=== PATIENT | female | born 1980 | race Caucasian/White ===

== ENCOUNTER 2023-12-05 16:44 | Emergency (ER) | payer OTHER, SELFPAY ==
[2023-12-05 16:53] VITALS: BP 170/110; PULSE 96; RESP 18; TEMP 36.7; O2SAT 98; BMI 28.4
--- NOTE | 2023-12-05 16:54 | ED_ITS ---
HPI - Wound/Laceration General Chief Complaint: Wound/Laceration Stated Complaint: left hand pointer finger cut Time Seen by Provider: 12/05/23 18:16 Source: patient Mode of arrival: ambulatory Limitations: no limitations History of Present Illness ED Provider: Molly Allen APRN HPI narrative: 43 yo female with history of crohns, htn, RA, ADHD right hand dominant here with lac to left index finger from hedge clippers. Tetanus is not up to date. No weakness, numbness, tingling. Related Data Previous Rx's ?Medication ?Instructions ?Recorded cephalexin 500 mg capsule 500 mg PO BID #14 caps 12/05/23 Allergies Allergy/AdvReac Type Severity Reaction Status Date / Time No Known Allergies Allergy Verified 12/05/23 16:56 Review of Systems Review of Systems: Yes all other systems are reviewed and are negative Constitutional: Constitutional: Reports no additional constitutional complaints, Denies body ache(s), Denies chills, Denies fever(s), Denies headach e(s) and Denies weakness Eyes: Eyes: Reports no additional eye complaints and Denies change in vision ENT: Reports system reviewed and no additional complaints, except as documented, Denies dizziness, Denies headache(s), Denies nasal congestion, Denies nasal discharge and Denies neck pain Cardiovascular: Cardiovascular: Reports no additional cardiovascular complaints, Denies chest pain, Denies leg edema and Denies dyspnea Respiratory: Respiratory: Reports no additional respiratory complaints, Denies cough and Denies dyspnea Gastrointestinal: Gastrointestinal: Reports no additional gastrointestinal complaints, Denies abdominal pain, Denies diarrhea, Denies nausea and Denies vomiting Genitourinary: Genitourinary: Reports no additional female genitourinary complaints and Denies urinary incontinence Musculoskeletal: Musculoskeletal: Reports no additional musculoskeletal complaints, Denies back pain, Denies arthralgias, Denies joint swelling, Denies neck pain, Denies numbness and Denies tingling Integumentary/Breasts: Skin/Breast: Reports system reviewed and no additional complaints, except as docu, Denies rash and Reports wounds Neurologic: Reports system reviewed and no additional complaints, except as documented, Denies Abnormal speech present, Denies dizziness, Denies headache(s), Denies numbness, Denies tingling and Denies weakness FORMERLY [facility], 1928–1983 Past Medical History Attestation statement: The following information was validated with the patient. Source: old records reviewed and nursing notes reviewed Social History Social History Advance Directives: No Advance Directives Information Provided: Yes Do you have a plan to hurt others: No Plan Physical Exam Vital Signs: Vital Signs: Last Vital Signs Temp 97.8 F 12/05/23 19:03 Pulse 75 12/05/23 19:03 Resp 16 12/05/23 19:03 BP 171/98 H 12/05/23 19:03 Pulse Ox 100 12/05/23 19:03 O2 Del Method Room Air 12/05/23 19:03 BMI result Body Mass Index 28.4 Const: General: cooperative, healthy appearing, comfortable and no acute distress Orientation/consciousness: patient oriented x3 Limitations: no limitations HEENT: Head: Yes normal to inspection Ears: hearing grossly normal bilaterally General nose exam: Normal external nose present Face and sinus: Yes normal facial exam Mouth: Normal oral and palatal mucosa present Throat: Yes posterior oropharynx normal Eyes: General: appearance normal, both eyes and all related structures Pupils: Equal, round and reactive pupils present Neck: Neck: Yes normal visual inspection Chest: Chest palpation & inspection: normal inspection of the chest Resp: Effort & Inspection: normal respiratory effort Auscultation: clear to auscultation bilaterally Cardio: Rate: regular rate Rhythm: regular rhythm Peripheral pulses: Peripheral pulses 2+ throughout GI: Inspection: Yes normal to inspection Palpation (GI): Soft to palpation and nontender Auscultation: normal bowel sounds Back/Spine/Pelvis: Thoracic/Lumbar Spine: thoracic and lumbar spine normal to inspection Skin: General skin exam: no rashes or lesions noted Neuro: General: patient oriented x3, no focal motor deficits and normal sensation to monofilament Cranial nerves: Yes Equal, round and reactive pupils present Cognition (Neuro): normal cognition Speech: No Abnormal speech present Gait exam (Neuro): Normal gait present Motor exam (neuro): 5/5 motor strength present throughout Extrem: Other: over the volar distal aspect of the left index finger there is a lac present (1.5cm), slight bleeding noted. FROM. Normal sensation. General: Yes normal to inspection Course Course Course Narrative: This is a rapid medical exam. Deferred additional HPI, ROS, PE to primary provider. 43 yo female with history of crohns, htn, RA, ADHD right hand dominant here with lac to left index finger from hedge clippers. will need lac repair with sutures, tetanus updated CYNDI Allen APRN Medications Administered Discontinued Medications Generic Name Dose Route Start Last Admin Trade Name Andreina PRN Reason Stop Dose Admin Cephalexin HCl 500 mg 12/05/23 18:46 12/05/23 18:53 Cephalexin 500 Mg Capsule PO 12/05/23 18:47 500 mg ONCE ONE Administration Diphtheria/Tetanus/Acell Pertussis 0.5 ml 12/05/23 16:58 12/05/23 18:16 Diphth,Pertus(Acell),Tet Adult 0.5 Ml Syringe IM 12/05/23 16:59 0.5 ml .ONCE ONE Administration Lidocaine HCl 2 ml 12/05/23 18:17 12/05/23 18:21 Lidocaine Hcl 1 % Mpf 2 Ml Vial INFILTRATI 12/05/23 18:18 2 ml ONCE ONE Administration Lidocaine HCl 2 ml 12/05/23 18:17 12/05/23 18:23 Lidocaine Hcl 1 % Mpf 2 Ml Vial INFILTRATI 12/05/23 18:18 2 ml ONCE ONE Administration Medical Decision Making Medical Decision Making MDM Narrative: 43 yo female with history of crohns, htn, RA, ADHD right hand dominant here with lac to left index finger from hedge clippers. Tetanus is not up to date. No weakness, numbness, tingling. over the volar distal aspect of the left index finger there is a lac present (1.5cm), slight bleeding noted. FROM. Normal sensation. See wound repair, tetanus will be given, pptx antibiotics Differential Diagnosis Differential Diagnoses: The differential diagnosis associated with the presentation includes Laceration, low suspicion for tendon laceration, foreign body, bony abnormality, vascular injury Admission/Observation Consideration of admission/observation: Escalation of care including admis harsha/observation considered low suspicion for tendon laceration, foreign body, bony abnormality, vascular injury requiring advanced imaging, urgent orthopedic consultation Tests considered The following testing was considered but not selected: low suspicion for tendon laceration, foreign body, bony abnormality, vascular injury requiring advanced imaging Prescription Management I considered prescription management with: Antibiotic Procedures Laceration Laceration 1: Site: hand (2nd digit ) Side (If applicable): left Size (cm): 3 Description: linear Depth: simple, single layer Pre-repair: wound explored and irrigated extensively (2L NS) Skin layer closed with: vicryl Size (cm): 5-0 Number of sutures: 3 Technique: simple, interrupted Nerve Block Nerve Block 1: Local Anesthetic: lidocaine 1% Amount of anesthesia used (mL): 3 Side: left Nerve Blocks: digital Procedure Successful: Yes Patient Tolerated Procedure: well Complications: none Discharge Plan Discharge Clinical Impression: Laceration Patient Disposition: Home, Self-Care Instructions: Finger Laceration (ED) Additional Instructions: Sutures may be removed in 7-10 days Keep the wound covered for 24 hrs then you may remove it and leave it open to air Water may run over it. NO soaking in water Motrin or tylenol for pain if able as needed Return for signs of infection (redness, drainage, fever) Prescriptions: New cephalexin 500 mg capsule 500 mg PO BID Qty: 14 0RF Referrals: Delmar Chandra MD [Primary Care Provider] - 1 week Interventions: ED Discharge Assessment Last Done: 12/05/23 19:03 Discharge Date/Time: 12/05/23 19:04 Print Language: Somali
[2023-12-05] MEDS: Diphth,Pertus(ACell),Tet Adult 0.5 ML SYRINGE IM (18:16)
[2023-12-05 18:17] VITALS: BP 171/98; PULSE 75; RESP 16; TEMP 36.6; O2SAT 100
[2023-12-05] MEDS: Lidocaine HCl 1 % MPF 2 ML VIAL INFILTRATI ×2 (18:21→18:23)
[2023-12-05] MEDS: cephALEXin 500 MG CAPSULE PO (18:53)
[2023-12-05 19:03] VITALS: BP 171/98; PULSE 75; RESP 16; TEMP 36.6; O2SAT 100
== END 2023-12-05 19:04 | disposition home or self-care (01) ==
PROVIDERS: Emergency Provider Emergency Medicine; PCP Internal Medicine
DX: S61.211A Laceration without foreign body of left index finger without damage to nail, initial encounter (principal); M79.642 Pain in left hand; W29.3XXA Contact with powered garden and outdoor hand tools and machinery, initial encounter; Y93.9 Activity, unspecified; Y92.007 Garden or yard of unspecified non-institutional (private) residence as the place of occurrence of the external cause; Y99.8 Other external cause status; Z23 Encounter for immunization
CPT/HCPCS: 12002; 90471; 90715; 99283; 99284

== ENCOUNTER 2025-02-20 17:16 | Emergency (ER) | payer OTHER, SELFPAY ==
[2025-02-20 17:45] VITALS: BP 168/94; PULSE 82; RESP 16; TEMP 35.8; O2SAT 98; BMI 30.9
--- NOTE | 2025-02-20 17:53 | ED_ITS ---
HPI - Animal Bite General Chief Complaint: Animal Bite Stated Complaint: Exposure to rabies/ Sent by PCP Time Seen by Provider: 02/20/25 19:47 Source: patient, RN notes reviewed and old records reviewed Mode of arrival: ambulatory Limitations: no limitations History of Present Illness ED Provider: Pam HPI narrative: 44-year-old female presents for evaluation of 2 small open wounds on her right ear. She noticed the area yesterday. She is unsure how she got them. She has not seen any bats her house or any other animals. Denies any pain or itching to the area. She went to her primary doctor who referred her to the ED for rabies series The patient offers no complaints and feels well Related Data Previous Rx's ?Medication ?Instructions ?Recorded cephalexin 500 mg capsule 500 mg PO BID #14 caps 12/04 Allergies Allergy/AdvReac Type Severity Reaction Status Date / Time No Known Allergies Allergy Verified 02/20/25 17:49 Review of Systems Constitutional: Constitutional: Denies body ache(s), Denies chills and Denies fever(s) Integumentary/Breasts: Skin/Breast: Reports wounds PMFSH Social History Social History Advance Directives: No Advance Directives Information Provided: No Physical Exam ED Vital Signs: Vital Signs - 24 hr 02/20/25 17:45 Temperature 96.5 F L Pulse Rate 82 Respiratory Rate 16 Blood Pressure 168/94 H Pulse Oximetry 98 Oxygen Delivery Method Room Air BMI result Body Mass Index 30.9 HENMT Other: To pinpoint puncture wounds to the right earlobe at the pinna. No bleeding, no surrounding erythema, no drainage from the areas Course Course Course Narrative: This is an RME: Additional HPI, ROS, PE not included below will be deferred to primary provider. RME assessment and note performed by: Maxine Rico PA-C This is a [id number]-female who presents to the ER with a complaint of ?two open areas to right ear. Reports that she went to her primary care and was told to come to the ED for possible rabies series. Patient is unsure if she was exposed to a bat. She states that she goes for a walk every morning, has not seen any baths that she is aware of. Plan: Rabies series Medical Decision Making Medical Decision Making [facility] Narrative: 44-year-old female presents for evaluation of puncture wounds on her right ear. It is unclear how she got these if she has bit by an insect or if there was a true rabies exposure. Her doctor sent her here for the rabies series. I discussed risks and benefits and the patient is open to receiving that rabies series. Differential Diagnosis Differential Diagnoses: The differential diagnosis associated with the presentation includes Rabies exposure Puncture wound Insect bite Discharge Plan Discharge Clinical Impression: Puncture wound Patient Disposition: Home, Self-Care Instructions: Rabies (ED) Additional Instructions: Rabies follow up with the [facility] Infusion [facility]: Upon discharge from the ED today, you will be contacted by the Infusion Center to schedule your follow up Rabies vaccines. You will need a total of 3 more injections. If for some reason you do not receive a call, please call the Infusion Center directly at [phone]. Follow up with your primary care provider after completion of the vaccine to have a titer drawn to ensure the vaccines effectiveness. Prescriptions: No Action cephalexin 500 mg capsule 500 mg PO BID Qty: 14 0RF Print Language: [place]an
--- OUTSIDE RECORDS SUMMARY | 2025-02-20 19:56 | XMS_ITS | Encounter Summary ---
Author Organization [facility] Address [address] [place] [id number] Phone Care Team Providers Care Washcloth Folder Name Role Phone Jimy Nino MD Primary Care Provide r Hank Coombs MD Unavailable Delmar Chandra MD Primary Care Provider [phone] Encounter Details Date Type Department Care Team (Late st Contact Info) Description 12/29/2018 Ancillary Orders [facility] [place] [address] [place] [address] Hank Coombs MD [address] [place] [address] Division of Rheumatology, Allergy and Immunology, [address] [place] [address] [email or web address] Ankylosing spondylitis of multiple sites in spine Social History Tobacco Use Types Packs/Day Years Used Date Smoking Tobacco: Never Smokeless Tobacco: Never Comments Unknown Sex and Gender Information Value Date Recorded Sex Assigned at Female 06/10/2022 11:41 AM EST Legal Sex Female 6:54 PM EST Gender Identity Female 06/10/2022 11:41 AM EST Sexual Orientation Straight 06/10/2022 11 :41 AM EST documented as of this encounter Plan of Treatment Upcoming Encounters Date Type Department Care Team (Late st Contact Info) Description 05/29/2025 11:00 AM EST Office Visit [facility] [place] [address] [place] [address] Hank Coombs MD [address] [place] [address] Division of Rheumatology, Allergy and Immunology, [address] [place] [address] [email or web address] documented as of this encounter Results * XR HAND 3 OR MORE VIEWS (LEFT) (12/29/2018 10:09 AM EDT) Anatomical Region Laterality Modality Hand Left Computed Radiogr aphy 12/29/2018 10:3 0 AM EDT Impressions 12/29/2018 10:30 AM EDT No acute fracture or dislocation of the left hand. No radiographic evidence of inflammatory arthritis. Narrative 12/29/2018 10:30 AM EDT Reason for exam (per EHR order): * ARTHRITIS, HAND TECHNIQUE: PA, lateral, and oblique radiographs of the left hand. COMPARISON: None. FINDINGS: No acute fracture or dislocation. Alignment of the hand and wrist is maintained. Cartilage spaces are preserved. No erosion. No focal radiographic soft tissue swelling. Procedure Note Alexia Gibson MD - 12/29/2018 Reason for exam (per EHR order): * ARTHRITIS, HAND TECHNIQUE: PA, lateral, and oblique radiographs of the left hand. COMPARISON: None. FINDINGS: No acute fracture or dislocation. Alignment of the hand and wrist ismaintained. Cartilage spaces are preserved. No erosion. No focal radiographic softtissue swelling. IMPRESSION: No acute fracture or dislocation of the left hand. No radiographicevidence of inflammatory arthritis. us Hank Coombs MD IMG XR UPPER EXTREMITY Final Result documented in this encounter Visit Diagnoses Diagnosis Ankylosing spondylitis of multiple sites in spine Ankylosing spondylitis of multiple sites in spine documented in this encounter Additional Health Concerns Infection Onset Date Last Indicated Resolved Time CoV-Risk 08/05/2024 08/05/2024 08/16/2024 1:21 AM EDT Influenza B 08/05/2024 08/05/2024 08/12/2024 1:22 AM EST documented as of this encounter Care Teams Washcloth Folder Relationship Specialty Start Date End Date Jimy Nino MD [address] [place] [id number] PCP - General 10/11/14 06/09/22 Delmar Chandra MD [address] [place] [id number] PCP - General Internal Medicine 06/10/22 Hank Coombs MD [address] [place] [address] Division of Rheumatology, Allergy and Immunology, [address] [place] [address] [email or web address] Historical LMR Provider 10/18/14 documented as of this encounter Additional Source Comments The information contained in this document represents components of the legal health record. It is not the complete legal health record.[facility]
--- OUTSIDE RECORDS SUMMARY | 2025-02-20 19:56 | XMS_ITS | Clinical Summary ---
Author Organization [facility] Address [address] [place] [address] Phone Care Team Providers Care Correctional Supply Supervisor Name Role Phone Hank Coombs MD Unavailable [phone] Delmar Chandra MD Primary Care Provider [phone] Allergies No known active allergies Medications amLODIPine (NORVASC) 5 MG tablet Take 5 mg by mouth daily. Reported on 08/25/2016 07/04/19 14 Active ALTAVERA, 28, 0.15-0.03 mg per tablet Take 1 tablet by mouth every morning. 04/21/20 23 Active SUMAtriptan (IMITREX) 50 MG tablet TAKE 1 TABLET BY MOUTH ONCE NEEDED FOR MIGRAINE. MAY REPEAT DOSE IN 2 HOURS IF NEEDED Active omeprazole (PRILOSEC) 40 MG capsule Take 1 capsule (40 mg total) by mouth daily. 90 capsule 3 09/29/19 25 Active nabumetone (RELAFEN) 500 MG tablet Take 1 tablet (500 mg total) by mouth 2 (two) times a day. 180 tablet 3 09/29/19 25 Active busPIRone (BUSPAR) 15 MG tablet Take 1 tablet (15 mg total) by mouth daily. 90 tablet 3 09/29/19 25 Active azaTHIOprine (IMURAN) 50 mg tabletIndicatio ns:Rheumatoid arthritis of hand Take 4 tablets (200 mg total) by mouth daily. 360 tablet 1 07/03/20 25 Active Additional Information Patient not taking.Reported on 01/03/2025 tiZANidine (ZANAFLEX) 4 MG tablet Take 1 tablet three times daily as needed 270 tablet 12/27/19 25 Active RINVOQ 15 mg ER 24 hr tabletIndicatio ns:Ankylosing spondylitis TAKE 1 TABLET BY MOUTH DAILY 90 tablet 3 02/07/20 25 Active RINVOQ 15 mg ER 24 hr tabletIndicatio ns:Ankylosing spondylitis TAKE 1 TABLET BY MOUTH DAILY 30 tablet 1 11/29/19 25 025 Discontinued Active Problems Problem Noted Date Diagnosed Date Ankylosing spondylitis 06/30/2012 Overview (07/28/2014): Ankylosing spondylitis Crohn's disease 06/30/2012 Overview (07/28/2014): Crohn's disease Encounters Date Type Department Care Team Description 02/01/2025 Refill [facility] [address] [place] [address] Hank Coombs MD Medication Refill 01/03/2025 3:00 PM EDT Office Visit [facility] at [address] [address] Hank Coombs MD Crohn's disease of small intestine without complication (Primary Dx); Ankylosing spondylitis of multiple sites in spine 01/01/2025 Documentation [facility] [address] [place] [address] Trevor Sage, [facility] 12/26/2024 Refill [facility] [address] [place] [address] Hank Coombs MD Medication Refill 12/07/2024 Orders Only [facility] at [address] [address] Hank Coombs MD Rheumatoid arthritis of hand 11/26/2024 Refill [facility] [place] [address] [place] [address] Hank Coombs MD Medication Refill 11/24/2024 Documentation [facility] [address] [place], [place] [id number] Trevor Sage [facility] from Last 3 Months Immunizations Immunization Administration Dates Next Due Hepatitis A, Adult 10/19/2014 INFLUENZA, SPLIT VIRUS, TRIV ALENT W/ PRESERVATIVE IM 03/27/2022,05/16/2021,01/24/2018,05/07,03/27/2016,06/25/2015,12/28/2013 ,02/08/2013 Influenza Quadrivalent MDCK Preservative Free IM 02/16/2023,03/27/2022,05/03/2017 Influenza Quadrivalent Prese rvative Free IM 02/15/2020,03/15/2019,01/24/2018 Influenza, whole 03/01/2020,03/14/2019 Pneumococcal conjugate PCV13 10/19/2014,01/10/20 14 Pneumococcal conjugate PCV20 05/12/2022 Pneumococcal polysaccharide PPSV23 01/15/2014, Td (adult),2 Lf Tetanus Toxo id, PF, Adsorbed 05/16/2021 Tdap 01/29/2011 Zoster recombinant 05/12/2022 Family History Medical History Relation Comments Gout Father Ankylosing spondylitis Mother Raynaud syndrome Sister Lupus Neg Hx Multiple sclerosis Neg Hx Psoriasis Neg Hx Rheumatoid arthritis Neg Hx Relation Status Comments Father Alive Mother Alive Sister Alive Social History Tobacco Use Types Packs/Day Years Used Date Smoking Tobacco: Never Smokeless Tobacco: Never Tobacco Cessation:Counseling Given: Not Answered Child or Family Care Answer Date Record ed Do you have problems with on e of the following making it difficult for you to work, study, or receive health care? No 12/28/2024 Education Answer Date Recorded Are you interested in help w ith more adult education (for example, completing high school, GED, job training, learning the [place] language, technical skills, or developing parenting skills)? No 12/28/2024 Are you concerned about learning? Not on file 12/28/2024 No 12/28/2024 Yes 12/28/2024 Food Answer Date Recorded Within the past 6 months we worried whether our food would run out before we got money to buy more. Never True 12/28/2024 Within the past 6 months the food we bought just didn't last and we didn't have enough money to get more. Never True Residential Stability Answer Date Recor ded What is your housing situation today? I have libertad cerda 12/28/2024 How many times have you move d in the past 12 months? Zero (I did not move) 12/28/2024 Paying for Meds Answer Date Recorded Do you have trouble paying for medicines? No 12/28/2024 Paying Utility Bills Answer Date Record ed Do you have trouble paying your heating or elect ricity bill? No 12/28/2024 Transportation Answer Date Recorded Has the lack of transportati on kept you from medical appointments or from getting medications? No 12/28/2024 Unemployment Answer Date Recorded Are you currently unemployed or working on a part-time or temporary basis, and looking for work? No 12/28/2024 Digital Access Answer Date Recorded No 12/28/2024 Yes 12/28/2024 Do you have reliable internet access at home? Ye s 12/28/2024 Do you have a device (e.g., phone, tablet, computer) with a working camera? Yes 12/28/2024 Comments Unknown Sex and Gender Information Value Date Recorded Sex Assigned at Female 06/10/2022 11:41 AM EST Legal Sex Female 6:54 PM EST Gender Identity Female 06/10/2022 11:41 AM EST Sexual Orientation Straight 06/10/2022 11 :41 AM EST Last Filed Vital Signs Vital Sign Reading Time Taken Comments Blood Pressure 149/89 01/03/2025 2:54 PM EDT Pulse 80 01/03/2025 2:54 PM EDT Temperature 36.7 C (98 F) 08/05/2024 10:17 AM EST Respiratory Rate 20 08/05/2024 10:17 AM EST Oxygen Saturation 98% 09/05/2024 9:44 AM EDT Inhaled Oxygen Concentration - - Weight 92.5 kg (204 lb) 01/03/2025 2:54 PM EDT Height 177.8 cm (5' 10 ) 01/03/2025 2:54 PM EDT Body Mass Index 29.27 01/03/2025 2:54 PM EDT Plan of Treatment Upcoming Encounters Date Type Department Care Team (Late st Contact Info) Description 05/29/2025 11:00 AM EST Office Visit [facility] [place] [address] [place] [address] Hank Coombs MD [address] [place] [address] Division of Rheumatology, Allergy and Immunology, [address] [place] [address] [email or web address] Health Maintenance Due Date Last Done Comments DEPRESSION SCREENING 1991 HIV ONE-TIME SCREENING (18-65 YEARS) 1997 PAP SMEAR 2000 MAMMOGRAM 2019 COLOGUARD 2024 COLONOSCOPY 2024 COLORECTAL CANCER SCREENING 2024 FIT TEST 2024 FOBT 2024 SIGMOIDOSCOPY 2024 VIRTUAL COLONOSCOPY 2024 INFLUENZA VACCINE (#1) 2025 , 02/16/2023, 03/27/2022, Additional history exists COVID-19 VACCINE (8 - Moderna risk 2023- season) 2025 03/02/2024, 12/09/2022, 03/27/2022, Additional history exists ALKALINE PHOSPHATASE LEVEL 09/05/202509/05, 05/09/2024, 12/14/2023, Additional history exists CREATININE LEVEL 09/05/2025 09/05/2024, 08/2023, 12/14/2023, Additional history exists SCREENING FOR DIABETES 09/06/2027 09/05/2024, 2023 LIPID PANEL 09/05/2029 09/05/2024 Adult Td,Tdap Booster 12/04/2033 12/05/2023 , 05/16/2021, 01/29/2011, Additional history exists HEPATITIS C SCREENING Completed 08/01/2012, 013 HEPATITIS A VACCINES Aged Out 10/19/2014 No long er eligible based on patient's age to complete this topic PNEUMOCOCCAL VACCINES (0-49 years) Completed 05/12/2022, 10/19/2014, 01/15/2014, Additional history exists SMOKING STATUS SCREENING (Once After 26 Yrs) Completed 01/03/2025 HIB VACCINES Aged Out No longer eligi ble based on patient's age to complete this topic MENINGOCOCCAL VACCINES (ACWY) Aged Out No longer eligible based on patient's age to complete this topic MENINGOCOCCAL VACCINES (B) Aged Out N o longer eligible based on patient's age to complete this topic Medical Devices Not on file Procedures Procedure Name Priority Date/Time Associated Diagnosis Comments LIPID PANEL Routine 09/05/2024 10:14 AM EDT Rheumatoid arthritis involving right hand with positive rheumatoid factor COMPREHENSIVE METABOLIC PANEL Routine 09/05/2024 10:14 AM EDT Rheumatoid arthritis involving right hand with positive rheumatoid factor HISTORICAL LAB Routine 08/01/2012 4:36 PM EST from Last 3 Months or Most Recently Relevant to Health Maintenance Results * (ABNORMAL) Comprehensive metabolic panel (09/05/2024 10:14 AM EDT) SODIUM 142 136 - 145 mmol/L [facility] POTASSIUM 4.6 3.4 - 5.1 mmol/L [facility] CHLORIDE 104 98 - 107 mmol/L [facility] CO2 29 22 - 31 mmol/L [facility] BUN 26(H) 6 - 23 mg/dL [facility] CREATININE 0.79 0.50 - 1.20 mg/dL [facility] GLUCOSE 94 70 - 100 mg/dL [facility] ALBUMIN 4.4 3.5 - 5.2 g/dL [facility] TOTAL PROTEIN 7.4 6.4 - 8.3 g/dL [facility] CALCIUM 9.4 8.8 - 10.7 mg/dL [facility] ALKALINE PHOSPHATASE 46 35 - 130 U/L [facility] TOTAL BILIRUBIN 0.6 0.0 - 1.0 mg/dL [facility] AST 25 10 - 50 U/L [facility] ALT 17 10 - 50 U/L [facility] GLOBULIN 3.0 2.2 - 4.2 g/dL [facility] EGFR 94 >59 mL/min/1.7 3m2 [facility] Comment:Estimated glomerular filtration rate calculated using the CKD-EPI refit equation. ANION GAP 9 7 - 17 mmol/L [facility] Blood 09/05/2024 10:1 4 AM EDT 09/05/2024 10:21 AM EDT Hank Coombs MD LAB BLOOD ORDERABLES Final R esult Performing Organization Address City/[facility] Co de Phone Number [facility] [address] [place] [phone] * (ABNORMAL) Lipid panel (09/05/2024 10:14 AM EDT) CHOLESTEROL 218(H) <200 mg/dL [facility] TRIGLYCERIDES 48 35 - 150 mg/dL [facility] HDL 94(H) 40 - 80 mg/dL [facility] CALCULATED LDL 114 50 - 129 mg/dL [facility] VLDL 10 <31 mg/dL [facility] CARDIAC RISK RATIO 2.3 0.0 - 4.0 [facility] Blood 09/05/2024 10:1 4 AM EDT 09/05/2024 10:21 AM EDT Hank Coombs MD LAB BLOOD ORDERABLES Final R esult Performing Organization Address City/[facility] Co de Phone Number [facility] [address] [place] [phone] * (ABNORMAL) Historical Lab (08/01/2012 4:36 PM EST) Pathologist [facility] NEGATIVE [facility] HISTONE AB 2.1(A) 0.0 - 0.9 Units [facility] Comment: Interpretation: Positive (>1.5) TEST PERFORMED BY [facility] [place] [address] (Note: Change in performing lab effective 02/07/09) anti-PR3 1 0 - 25 AU/mL [facility] Comment:TEST PERFORMED AT [place], [place] anti-MPO 53(A) 0 - 25 AU/mL [facility] Comment:TEST PERFORMED AT [place] ANTI-DNA UNITS 16 0 - 25 IU [facility] A-CCP 2 0 - 7 Josh U/mL [facility] C4 COMPLEMENT COMPONENT 30 10 - 40 mg/dL [facility] C3 COMPLEMENT COMPONENT 131 90 - 180 mg/dL [facility] HBsAg NEGATIVE NEGATIVE [facility] HCV NEGATIVE NEGATIVE [facility] 08/01/2012 4:36 PM EST Comment:BLOOD us Hank Coombs MD LAB BLOOD ORDERABLES Final R esult [address] [address] from Last 3 Months or Most Recently Relevant to Health Maintenance Insurance [facility] Care Teams Correctional Supply Supervisor Relationship Specialty Start Date End Date Delmar Chandra MD [address] [place] [phone] PCP - General Internal Medicine 06/10/22 Hank Coombs MD [address] [place] [address] Division of Rheumatology, Allergy and Immunology, [address] [place] [address] [email or web address] Historical LMR Provider 10/18/14 Additional Source Comments The information contained in this document represents components of the legal health record. It is not the complete legal health record.[facility]
--- OUTSIDE RECORDS SUMMARY | 2025-02-20 19:56 | XMS_ITS | Patient Health Record ---
Author Organization [facility] Address [address] [facility] [place] [address] Care Team Providers Care Trim Attacher Name Role Phone Delmar Chandra MD Primary Care Provider Jamshid Lorenzo Unavailable [phone] Allergies No Known Allergies Reason For Referral No Information Medications Medication SIG (Take, Route, Frequency, Duration) Notes Start Date End Date Status Cyclobenzaprine Comfort Pac 10 MG as directed Combination Active amLODIPine Besylate 10 MG TAKE 1 TABLET BY MOUTH EVERY DAY Oral; Duration: 90 Active PredniSONE (Dylon) 7.5 MG as directed Orally Not-Taking Ferrous Gluconate 324 (38 Fe) MG TAKE 1 TABLET BY MOUTH TWICE A DAY WITH MEALS FOR 90 DAYS (TAKE WITH ORANGE JUICE PRIOR) Oral; Duration: 90 Active Remicade 100 MG as directed Intravenous Not-Taking Hydroxychloroquine Sulfate 200 MG TAKE 2 TABLETS BY MOUTH EVERY DAY Oral; Duration: 90 Active Vitamin D-3 2000 unit as directed Orally Not-Taking Levonorgest-Eth Estrad 91-Day 0.15-0.03 &0.01 MG TAKE 1 TABLET(S) EVERY DAY BY ORAL ROUTE FOR 91 DAYS. Oral; Duration: 91 Active Pentasa 500 MG 4 capsules Orally Four times a day; Duration: 30 day(s) Not-Taking Remicade 100 MG as directed Intravenous Active azaTHIOprine 100 MG TAKE 1 TABLET BY MOUTH TWICE A DAY Orally Active Methocarbamol 500 MG 1.5 tablets Orally every 4 hrs; Duration: 30 day(s) Active Mupirocin 2 % APPLY TO AFFECTED AREA 3 TIMES A DAY External; Duration: 10 Active Folic Acid 1 MG 1 tablet Orally Once a day; Duration: 30 day(s) Not-Taking Methotrexate as directed Not-T aking Omeprazole 40 MG 2 capsules Orally Once a day Active predniSONE 5 MG TAKE 4 TABLETS BY MOUTH EVERY DAY FOR 3 DAYS TAPER BY ONE TABLET EVERY 3 DAYS TILL OFF Oral; Duration: 12 Active Biotin 1000 MCG 1 tablet Orally Once a day; Duration: 30 day(s) Not-Taking Meloxicam 15 MG 1 tablet Orally Once a day Active busPIRone HCl 10 MG TAKE 1 TABLET BY MOUTH EVERY MORNING & TAKE 1 & 1/2 TABLETS EVERY EVENING Oral; Duration: 90 Active Triamcinolone Acetonide 0.1 % APPLY TO AFFECTED SPOTS ON GROIN TWICE DAILY FOR UP TO 2 WEEKS TAKE 1 WEEK BREAK. REPEAT NEEDED. External; Duration: 14 Active Social History Tobacco Use: Social History Observation Description Date Details (start date - stop date) Never Smoker NA - NA Tobacco Use/Smoking Question Answer Notes Are you a: nonsmoker Alcohol Screen Question Answer Notes Did you have a drink containing alcohol in the p ast year? Yes Points 0 Interpretation Negative Tobacco use other than smoking: Question Answer Notes Are you an other tobacco user? No Plan Of Treatment Pending Test Test Name Order Date [id number] Destruction, 06-2003/22/2013 [id number] Destruction, 06-2004/20/2013 [id number] Destruction, 06-2005/18/2013 Insurance Providers Payer Name Payer Address Payer Phone Subscriber Number Group Number Insured Name Patient Relationship to Insured Coverage Start Date Coverage End Date [facility] [address] [place] [address] [id number] Montse Eubanks Self - patient is the insured Medical (General) History Medical History History ICD Code Arthritis - high blood pressure chicken pox anklosing spondylitis Anemia Anxiety Back,Hip,and Knee pain Broken bones Crohns SI Depression Headaches Headaches/Migraines Numbness Reflux ( GERD) Warts Surgical History Surgery Date(Month/Year) tonsillectomy Hospitalization History Reason Date(Month/Year) [facility]- infusions of remicade 04/13/14
--- OUTSIDE RECORDS SUMMARY | 2025-02-20 19:56 | XMS_ITS | Encounter Summary ---
Author Organization [facility] Address [address] [place] [phone] Phone Care Team Providers Care Restaurant Crew Person Name Role Phone Jimy Nino MD Primary Care Provide r Hank Coombs MD Unavailable [phone] Delmar Chandra MD Primary Care Provider Encounter Details Date Type Department Care Team (Late st Contact Info) Description 12/29/[address] [facility] [place] [address] [place] [address] Hank Coombs MD [address] [place] [address] Division of Rheumatology, Allergy and Immunology, [facility] [place] [address] [email or web address] Ankylosing spondylitis of multiple sites in spine [...] Description 05/29/2025 11:00 AM EST Office Visit [facility] [place] [address] [place] [address] Hank Coombs MD [address] [place] [address] Division of Rheumatology, Allergy and Immunology, [address] [place] [address] [email or web address] documented as of this encounter Results * XR FOOT 3 OR MORE VIEWS (LEFT) (12/29/2018 10:10 AM EDT) Anatomical Region Laterality Modality Foot Left Computed Radiogr aphy 12/29/2018 10:3 0 AM EDT Impressions 12/29/2018 10:32 AM EDT No acute fracture or dislocation of the right or left foot. No radiographic evidence of inflammatory arthritis. Narrative 12/29/2018 10:32 AM EDT Reason for exam (per EHR order): * ARTHRITIS, FOOT TECHNIQUE: Frontal, lateral, and oblique radiographs of the right and left foot. COMPARISON: None. FINDINGS: No acute fracture or dislocation. Apparent bilateral second through fourth hammertoe deformities may be positional on nonweightbearing views. Cartilage spaces are maintained. No focal radiographic soft tissue swelling. Procedure Note Alexia Gibson MD - 12/29/2018 Reason for exam (per EHR order): * ARTHRITIS, FOOT TECHNIQUE: Frontal, lateral, and oblique radiographs of the right and leftfoot. COMPARISON: None. FINDINGS: No acute fracture or dislocation. Apparent bilateral second throughfourth hammertoe deformities may be positional on nonweightbearing views.Cartilage spaces are maintained. No focal radiographic soft tissue swelling. IMPRESSION: No acute fracture or dislocation of the right or left foot. Noradiographic evidence of inflammatory arthritis. Hank Coombs MD IMG XR LOWER EXTREMITY Final Result documented in this encounter Visit Diagnoses Diagnosis Ankylosing spondylitis of multiple sites in spine Ankylosing spondylitis of multiple sites in spine documented in this encounter Additional Health Concerns Infection Onset Date Last Indicated Resolved Time CoV-Risk 08/05/2024 08/05/2024 08/16/2024 1:21 AM EDT Influenza B 08/05/2024 08/05/2024 08/12/2024 1:22 AM EST documented as of this encounter Care Teams Restaurant Crew Person Relationship Specialty Start Date End Date Jimy Nino MD [address] [place] [address] PCP - General 10/11/14 06/09/22 Delmar Chnadra MD [address] [place] [address] PCP - General Internal Medicine 06/10/22 Hank Coombs MD [address] [place] [address] Division of Rheumatology, Allergy and Immunology, [facility] [place] [address] [email or web address] Historical LMR Provider 10/18/14 documented as of this encounter Additional Source Comments The information contained in this document represents components of the legal health record. It is not the complete legal health record.[facility]
[2025-02-20 20:36] VITALS: BP 155/85; PULSE 67; RESP 16; TEMP 36.2; O2SAT 100
[2025-02-20] MEDS: Rabies Vaccine (PCEC)/PF 1 ML VIAL IM (20:39)
[2025-02-20 20:54] VITALS: BP 155/85; PULSE 67; RESP 16; TEMP 36.2; O2SAT 100
== END 2025-02-20 20:55 | disposition home or self-care (01) ==
PROVIDERS: Emergency Provider Student in an Organized Health Care Education/Training Program; PCP Internal Medicine
DX: S01.331A Puncture wound without foreign body of right ear, initial encounter (principal); X58.XXXA Exposure to other specified factors, initial encounter; Y93.9 Activity, unspecified; Y92.9 Unspecified place or not applicable; Y99.9 Unspecified external cause status; Z20.3 Contact with and (suspected) exposure to rabies; Z23 Encounter for immunization
CPT/HCPCS: 90375; 90471; 90675; 96372; 99282; 99284

== ENCOUNTER 2025-03-06 07:30 | Outpatient (RCR) | payer OTHER, SELFPAY ==
[2025-02-23 08:06] VITALS: BP 121/80; PULSE 84; RESP 16; TEMP 36.6; O2SAT 97
[2025-02-23] MEDS: Rabies Vaccine (PCEC)/PF 1 ML VIAL IM (08:11)
[2025-02-27 07:35] VITALS: BP 119/81; PULSE 85; RESP 16; TEMP 36.6; O2SAT 97
[2025-02-27] MEDS: Rabies Vaccine (PCEC)/PF 1 ML VIAL IM (07:42)
[2025-03-06 07:41] VITALS: BP 127/80; PULSE 85; RESP 16; TEMP 36.6; O2SAT 98
[2025-03-06] MEDS: Rabies Vaccine (PCEC)/PF 1 ML VIAL IM (07:42)
== END 2025-03-06 07:52 | disposition home or self-care (01) ==
LOC: HO.INF 07:30
PROVIDERS: Visit Provider Physician Assistant
DX: Z20.3 Contact with and (suspected) exposure to rabies (principal); T14.8XXD Other injury of unspecified body region, subsequent encounter; W64.XXXD Exposure to other animate mechanical forces, subsequent encounter
CPT/HCPCS: 90471; 90675